=== PATIENT | male | born 1985 | race African-American/Black ===

== ENCOUNTER 2023-02-05 06:59 | Emergency (ER) | payer MEDICAID ==
[~2023-02-05] VITALS: Ht 195.6 cm; Wt 97.5 kg
[2023-02-05 07:02] VITALS: BP 114/80
== END 2023-02-05 11:24 | disposition left against medical advice (07) ==
LOC: ER 06:59
DX: Z53.21 Procedure and treatment not carried out due to patient leaving prior to being seen by health care provider (principal)
CPT/HCPCS: 99281